=== PATIENT | male | born 1990 | race Caucasian/White ===

== ENCOUNTER 2017-10-31 02:32 | Emergency (ER) | payer OTHER ==
[~2017-10-31] VITALS: Ht 172.7 cm; Wt 75.4 kg
[2017-10-31 02:36] VITALS: Ht 172.7 cm; Wt 75.4 kg
[2017-10-31] MEDS ORDERED: TRIMETHOPRIM/SULFAMETHOX (DS) TAB PO ONE ×2 (04:00)
[2017-10-31] MEDS ORDERED: CEPHALEXIN 500 MG CAP PO ONE ×2 (04:00)
--- NOTE | 2017-10-31 04:36 | RADRPT ---
PROCEDURE: XR Foot Bilateral. CLINICAL INDICATION: Pain TECHNIQUE: AP, lateral and oblique views of the bilateral feet were obtained. The images were rev iewed on a PACS workstation. COMPARISON: None. FINDINGS: Right foot: The bones of the foot appear intact, with no evidence of acute fracture, dislocation, or subluxation . There is appearance of mild spurring deformity arising from the base of the fifth metatarsal which could be secondary to old trauma. The joint spaces are preserved. Bone mineralization is normal. No significant soft tissue swelling is seen. Left foot: The bones of the foot appear intact, with no evidence of fracture, dislocation, or subluxation. The joint spaces are preserved. Bone mineralization is normal. No significant soft tissue swelling is seen. IMPRESSION: No acute abnormality seen. There is appearance of mild spurring deformity arising from the base of t he fifth metatarsal of the right foot which could be secondary to old trauma. There is the appearanc e of mild deformity of the distal left tibia / fibula on the lateral view with which could be second fany to old trauma. RPTAT: HJES .Charlie Guzmán MD, MD Date Time Electronically viewed and signed by .Charlie Guzmán MD, MD on 10/31/2017 04:36 .S/
[2017-10-31] MEDS ORDERED: CEPH-443 PO (04:41)
[2017-10-31] MEDS ORDERED: SULF1TAB31 PO (04:41)
[2017-10-31] MEDS ORDERED: ACET325T33 PO (04:41)
--- NOTE | 2017-10-31 05:16 | ERD ---
ER Documentation Chief Complaint Chief Complaint bib 889 c/o both leg pain for a while now HPI 27-year-old homeless male was brought in by ambulance for bilateral foot pain for the past 2 weeks. Patient states that he has done a lot of walking and has the pain, he states that he has difficulty ambulating now. Patient denies any fevers. ROS All systems reviewed and are negative except as per history of present illness. Medications Home Meds Active Scripts Acetaminophen* (Tylenol*) 325 Mg Tablet, 2 TAB PO Q4 Y for PAIN AND OR ELEVATED TEMP, #30 TAB Prov:MARIANNE MARSHALL PA-C 10/31/17 Sulfamethoxazole/Trimethoprim* (Bactrim Ds* Tablet) 1 Each Tablet, 1 TAB PO BID , #14 TAB Prov:MARIANNE MARSHALL PA-C 10/31/17 Cephalexin* (Keflex*) 500 Mg Capsule, 500 MG PO QID for 7 Days, CAP Prov:MARIANNE MARSHALL PA-C 10/31/17 Allergies Allergies: Coded Allergies: No Known Drug Allergies (Verified Allergy, Unknown, 10/31/17) PMhx/Soc Medical and Surgical Hx: pt denies Medical Hx, pt denies Surgical Hx Hx Alcohol Use: No Hx Substance Use: No Hx Tobacco Use: No Smoking Status: Current some day smoker Physical Exam Vitals Vital Signs Date Time Temp Pulse Resp B/P Pulse Ox O2 Delivery O2 Flow Rate FiO2 10/31/17 02:36 98.3 94 20 122/88 98 Physical Exam Const: wdwn. poor hygiene Head: Atraumatic Eyes: Normal Conjunctiva ENT: Normal External Ears, Nose and Mouth. Neck: Full range of motion..~ No meningismus. Resp: Clear to auscultation bilaterally Cardio: Regular rate and rhythm, no murmurs Abd: Soft, non tender, non distended. Normal bowel sounds Skin: No petechiae or rashes Back: No midline or flank tenderness Ext: No cyanosis, or edema left great toe has mild erythema at cuticle with absent nail. Neur: Awake and alert Psych: no suicidal ideation. angry Results 24 hrs Current Medications Medications (Trade) Dose Ordered Sig/Ciera Route PRN Reason Start Time Stop Time Status Last Admin Dose Admin Cephalexin (Keflex) 500 mg ONCE ONCE PO 10/31/17 04:00 10/31/17 04:00 DC Trimethoprim/ Sulfamethoxazole (Bactrim (Ds)) 1 tab ONCE ONCE PO 10/31/17 04:00 10/31/17 04:00 DC Cephalexin (Keflex) 500 mg ONCE ONCE PO 10/31/17 04:00 10/31/17 04:01 DC 10/31/17 04:17 Trimethoprim/ Sulfamethoxazole (Bactrim (Ds)) 1 tab ONCE ONCE PO 10/31/17 04:00 10/31/17 04:01 DC 10/31/17 04:17 Procedures/MDM 27 year old male who is homeless brought in by ambulance for bilateral feet pain from walking too much. Patient was unpleasant to myself and staff, he was a poor historian. XRs of bilateral feet did not show acute pathology fracture or dislocation. There was evidence of old trauma. Patient had poor hygiene, left great toe had absent nail with mild erythema at cuticle therefore he was given Keflex and Bactrim, a prescription was also intended. Through out patient encounter, I saw patient ambulating without any difficulty. He was neurovascualry intact and stable to be discharged how he refused to sign paperwork, he was angry and told nurse "I want someone to scrub my feet" and was requesting prescription for Adderall and other controlled substance. He refused to sign paperwork Departure Diagnosis: Primary Impression: Foot pain, bilateral Condition: Stable Patient Instructions: Sprain Foot Referrals: NO PRIMARY,CARE PHYSICIAN MARIANNE MARSHALL PA-C Oct 31, 2017 05:16
[2017-11-01] MEDS ORDERED: IBUP400T22 PO (19:51)
[2017-11-01] MEDS ORDERED: CLOT30CR24 TOP (19:51)
[2017-11-01] MEDS ORDERED: CEPH-443 PO (19:51)
== END 2017-10-31 05:14 | disposition home or self-care (01) ==
LOC: FTE 02:32 → E/R 05:14
DX: M79.671 Pain in right foot (principal); M79.672 Pain in left foot; F17.210 Nicotine dependence, cigarettes, uncomplicated
CPT/HCPCS: 73630; Z7502; Z7610

== ENCOUNTER 2017-11-01 16:42 | Emergency (ER) | payer OTHER ==
[~2017-11-01] VITALS: Wt 77.0 kg
[~2017-11-01 16:42] MED LIST: ACET325T33 PO; CEPH-443 PO; SULF1TAB31 PO
[2017-11-01] MEDS ORDERED: CLOT30CR24 TOP (19:51)
[2017-11-01] MEDS ORDERED: IBUP400T22 PO (19:51)
[2017-11-01] MEDS ORDERED: CEPH-443 PO (19:51)
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
== END 2017-11-02 06:36 | disposition home or self-care (01) ==
LOC: E/R 16:42
DX: B35.3 Tinea pedis (principal); M79.671 Pain in right foot
CPT/HCPCS: 99283

== ENCOUNTER 2019-01-04 08:12 | Emergency (ER) | payer OTHER ==
[~2019-01-04] VITALS: Ht 175.3 cm; Wt 88.0 kg
[~2019-01-04 08:12] MED LIST changes: +CLOT30CR24 TOP; +IBUP-1561 PO; +PRED20TA PO
[2019-01-04 08:14] VITALS: Ht 175.3 cm; Wt 88.0 kg
[2019-01-04] MEDS ORDERED: OLANZAPINE 5 MG TAB PO ONE (08:30)
[2019-01-04] MEDS ORDERED: LORAZEPAM 1 MG TAB PO ONE (08:30)
--- NOTE | 2019-01-04 11:11 | PSY ---
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 past Psych Hx: + ho psych admits PMHx: denies nkda Meds: none MSE: lethargic, uncooperative, vague evasive, soft speech, +CAH denies si/hi Imp: 28 yo male acute danger to others voluntary psych admit utox for moderate agitation zyprexa 5mg po prn for severe agitation chlorpromazine 25mg imp rn Medical history Problems Medical Problems: (1) Athletes foot Status: Acute (2) Bilateral foot pain Status: Acute (3) Foot pain Status: Acute (4) Foot pain, bilateral Status: Acute (5) Syphilis Status: Acute Allergies: Coded Allergies: No Known Drug Allergies (Verified Allergy, Unknown, 10/31/17) Psychiatric Objective Eval Mental Status Examination: Laboratory Results Laboratory Tests Test 01/04/19 08:43 01/04/19 08:44 White Blood Count 8.7 10^3/ul Red Blood Count 4.50 10^6/ul Hemoglobin 14.5 g/dl Hematocrit 42.5 % Mean Corpuscular Volume 94.4 fl Mean Corpuscular Hemoglobin 32.2 pg Mean Corpuscular Hemoglobin Concent 34.1 g/dl Red Cell Distribution Width 12.1 % Platelet Count 332 10^3/UL Mean Platelet Volume 9.0 fl Immature Granulocytes % 0.300 % Neutrophils % 83.1 % Lymphocytes % 11.9 % Monocytes % 4.3 % Eosinophils % 0.2 % Basophils % 0.2 % Nucleated Red Blood Cells % 0.0 /100WBC Immature Granulocytes # 0.030 10^3/ul Neutrophils # 7.2 10^3/ul Lymphocytes # 1.0 10^3/ul Monocytes # 0.4 10^3/ul Eosinophils # 0.0 10^3/ul Basophils # 0.0 10^3/ul Nucleated Red Blood Cells # 0.0 10^3/ul Sodium Level 142 mmol/L Potassium Level 3.7 mmol/L Chloride Level 104 mmol/L Carbon Dioxide Level 28 mmol/L Anion Gap 10 Blood Urea Nitrogen 16 mg/dl Creatinine 0.71 mg/dl Est Glomerular Filtrat Rate mL/min > 60 mL/min Glucose Level 104 mg/dl Calcium Level 9.8 mg/dl Total Bilirubin 0.2 mg/dl Direct Bilirubin 0.00 mg/dl Indirect Bilirubin 0.2 mg/dl Aspartate Amino Transf (AST/SGOT) 102 IU/L Alanine Aminotransferase (ALT/SGPT) 140 IU/L Alkaline Phosphatase 58 IU/L Total Protein 7.3 g/dl Albumin 4.2 g/dl Globulin 3.10 g/dl Albumin/Globulin Ratio 1.35 Salicylates Level < 1.0 mg/dl Acetaminophen Level < 10.0 ug/ml Ethyl Alcohol Level 37.0 mg/dl Urine Color YELLOW Urine Clarity SLIGHTLY CLOUDY Urine pH 5.0 Urine Specific [place] 1.030 Urine Ketones TRACE mg/dL Urine Nitrite NEGATIVE mg/dL Urine Bilirubin NEGATIVE mg/dL Urine Urobilinogen 1+ mg/dL Urine Leukocyte Esterase NEGATIVE Vic/ul Urine Microscopic RBC 4 /HPF Urine Microscopic WBC 3 /HPF Urine Mucus MANY /HPF Urine Hemoglobin NEGATIVE mg/dL Urine Glucose NEGATIVE mg/dL Urine Total Protein NEGATIVE mg/dl Urine Opiates Screen Negative Urine Barbiturates Negative Urine Amphetamines Screen POSITIVE Urine Benzodiazepines Screen Negative Urine Cocaine Screen Negative Urine Cannabinoids Positive Assessment and Plan Recommendation/Plan Multiple antipsychotics: No Discharge Disposition: Psychiatric inpatient Legal Status: Voluntary HOJUSTICE FORREST Jan 04, 2019 11:11
--- NOTE | 2019-01-04 12:00 | ERD ---
ER Documentation Chief Complaint Chief Complaint off psych medications, hearing voices HPI 28-year-old male presents the emergency department complaining of auditory hallucinations. Patient has a history of underlying psychiatric disease and just completed a court ordered inpatient hospitalization for stabilization. He states that since discharge a few weeks ago, he has been noncompliant with his medications and intermittently using methamphetamine. He reports auditory hallucinations. He states that the hallucinations are occasionally telling him to hurt other people and to "get into a fight." He reports no suicidal thoughts. He reports no medical complaints at this time. ROS All systems reviewed and are negative except as per history of present illness. Medications Home Meds Unable to Obtain Active Prescriptions or Reported Meds Allergies Allergies: Coded Allergies: No Known Drug Allergies (Verified Allergy, Unknown, 10/31/17) PMhx/Soc Medical and Surgical Hx: pt denies Surgical Hx History of Surgery: No Anesthesia Reaction: No Hx Neurological Disorder: No Hx Respiratory Disorders: No Hx Cardiac Disorders: No Hx Psychiatric Problems: Yes (SCHITZOPHRENIA, DRUG ABUSE) Hx Miscellaneous Medical Probl: Yes (HEPATITIS C) Hx Alcohol Use: Yes Hx Substance Use: Yes (METH) Hx Tobacco Use: Yes Smoking Status: Current every day smoker FmHx Noncontributory for chief complaint Physical Exam Vitals Vital Signs Date Temp Pulse Resp B/P (MAP) Pulse Ox O2 O2 Flow FiO2 Time Delivery Rate 01/04/19 98.0 80 16 118/63 100 Room Air 10:44 (81) 01/04/19 98.0 107 19 167/89 99 08:14 (115) Physical Exam GENERAL: The patient is well developed and appropriate for usual state of health in no apparent distress HEENT: Pupils equal, round, and reactive to light. EOMI. There is no scleral icterus. NECK: C-spine is soft and supple, there is no meningismus. There is no cervical lymphadenopathy. LUNGS: Clear to auscultation bilaterally. There are no rales, wheezes or rhonchi. HEART: Regular rate and rhythm, no murmurs, clicks, rubs or gallops. ABDOMEN: Soft, non-tender, non-distended. There are bowel sounds in all four quadrants. No rebound or guarding. EXTREMITIES: There is no peripheral cyanosis or edema. No focal swelling or erythema. NEURO: The patient moves all four extremities with 5/5 strength. Cranial nerves II - XII are intact. Normal gait. Alert and oriented SKIN: There is no apparent rash or petechiae. HEME/LYMPHATIC: There is no evidence of excessive bruising or lymphedema. PSYCHIATRIC: Awake, alert, oriented. Patient is having auditory hallucinations. There is no agitation currently. Patient denies any suicidal or homicidal thoughts. Speech is fluent and intelligent. He seems to have some insight. Result Diagram: 01/04/19 0843 01/04/19 0843 Results 24 hrs Laboratory Tests Test 01/04/19 08:43 01/04/19 08:44 White Blood Count 8.7 10^3/ul Red Blood Count 4.50 10^6/ul Hemoglobin 14.5 g/dl Hematocrit 42.5 % Mean Corpuscular Volume 94.4 fl Mean Corpuscular Hemoglobin 32.2 pg Mean Corpuscular Hemoglobin Concent 34.1 g/dl Red Cell Distribution Width 12.1 % Platelet Count 332 10^3/UL Mean Platelet Volume 9.0 fl Immature Granulocytes % 0.300 % Neutrophils % 83.1 % Lymphocytes % 11.9 % Monocytes % 4.3 % Eosinophils % 0.2 % Basophils % 0.2 % Nucleated Red Blood Cells % 0.0 /100WBC Immature Granulocytes # 0.030 10^3/ul Neutrophils # 7.2 10^3/ul Lymphocytes # 1.0 10^3/ul Monocytes # 0.4 10^3/ul Eosinophils # 0.0 10^3/ul Basophils # 0.0 10^3/ul Nucleated Red Blood Cells # 0.0 10^3/ul Sodium Level 142 mmol/L Potassium Level 3.7 mmol/L Chloride Level 104 mmol/L Carbon Dioxide Level 28 mmol/L Anion Gap 10 Blood Urea Nitrogen 16 mg/dl Creatinine 0.71 mg/dl Est Glomerular Filtrat Rate mL/min > 60 mL/min Glucose Level 104 mg/dl Calcium Level 9.8 mg/dl Total Bilirubin 0.2 mg/dl Direct Bilirubin 0.00 mg/dl Indirect Bilirubin 0.2 mg/dl Aspartate Amino Transf (AST/SGOT) 102 IU/L Alanine Aminotransferase (ALT/SGPT) 140 IU/L Alkaline Phosphatase 58 IU/L Total Protein 7.3 g/dl Albumin 4.2 g/dl Globulin 3.10 g/dl Albumin/Globulin Ratio 1.35 Salicylates Level < 1.0 mg/dl Acetaminophen Level < 10.0 ug/ml Ethyl Alcohol Level 37.0 mg/dl Urine Color YELLOW Urine Clarity SLIGHTLY CLOUDY Urine pH 5.0 Urine Specific [place] 1.030 Urine Ketones TRACE mg/dL Urine Nitrite NEGATIVE mg/dL Urine Bilirubin NEGATIVE mg/dL Urine Urobilinogen 1+ mg/dL Urine Leukocyte Esterase NEGATIVE Vic/ul Urine Microscopic RBC 4 /HPF Urine Microscopic WBC 3 /HPF Urine Mucus MANY /HPF Urine Hemoglobin NEGATIVE mg/dL Urine Glucose NEGATIVE mg/dL Urine Total Protein NEGATIVE mg/dl Urine Opiates Screen Negative Urine Barbiturates Negative Urine Amphetamines Screen POSITIVE Urine Benzodiazepines Screen Negative Urine Cocaine Screen Negative Urine Cannabinoids Positive Current Medications Medications Dose Sig/Ciera Start Time Status Last (Trade) Ordered Route PRN Stop Time Admin Dose Reason Admin Olanzapine 10 mg ONCE ONCE 01/04/19 DC 01/04/19 (Zyprexa) PO 08:30 08:50 01/04/19 08:31 Lorazepam 1 mg ONCE ONCE 01/04/19 DC 01/04/19 (Ativan) PO 08:30 08:51 01/04/19 08:31 Procedures/MDM Patient was taken to a room, seen and evaluated. Comfort measures were initiated. Diagnostic tests were ordered and reviewed. CONSULTATION: Tele-psychiatry was consulted and recommendations were appreciated. REEVALUATION: 1200: Patient remains well-appearing and without agitation. MEDICAL DECISION MAKIN-year-old male with a history of underlying p sychiatric disease and substance abuse disorder presents the emergency department with psychotic symptoms. At this time, he has improved after the Zyprexa. He does not appear to be in imminent danger to himself or others, but has been recommended for voluntary psychiatric hospitalization for which we are pending placement. He will remain under observation in the emergency department pending placement to a local voluntary psychiatric facility. Departure Diagnosis: Primary Impression: Hallucinations Additional Impression: Methamphetamine abuse Condition: Stable HUNG RUBIN Jan 04, 2019 12:00
[2019-01-04 20:13] VITALS: BP 127/72; PULSE 91; RESP 16
== END 2019-01-04 20:35 ==
LOC: E/R 08:12
DX: F15.10 Other stimulant abuse, uncomplicated (principal); R40.2142 Coma scale, eyes open, spontaneous, at arrival to emergency department; R40.2362 Coma scale, best motor response, obeys commands, at arrival to emergency department; R40.2252 Coma scale, best verbal response, oriented, at arrival to emergency department; F17.210 Nicotine dependence, cigarettes, uncomplicated; R44.3 Hallucinations, unspecified
CPT/HCPCS: 36415; 80053; 80307; 81001; 81003; 85025; Z7502; Z7610

== ENCOUNTER 2019-01-13 18:28 | Emergency (ER) | payer OTHER ==
[~2019-01-13] VITALS: Ht 167.6 cm; Wt 85.0 kg
[2019-01-13 18:53] VITALS: Ht 167.6 cm; Wt 85.0 kg
--- NOTE | 2019-01-13 20:07 | ERD ---
ER Documentation Chief Complaint Chief Complaint BODY ACHES WITH CHILLS X 5 DAYS HPI 28-year-old male, presents to the emergency department, complaining of 5 days with worsening of upper respiratory symptoms including cough, chest congestion subjective fever and general malaise. The patient has been taking over-the- counter medications without improvement of the symptoms. He denies chest pain, no shortness of breath, no dizziness. ROS All systems reviewed and are negative except as per history of present illness. Medications Home Meds Active Scripts Fexofenadine Hcl* (Fexofenadine Hcl*) 180 Mg Tablet, 180 MG PO DAILY, #30 TAB Prov:BIB HERNANDES MD 01/13/19 Albuterol Sulfate* (Albuterol Sulfate* Liq) 2 Mg/5 Ml Syrup, 2 MG PO TID, #60 ML Prov:BIB HERNANDES MD 01/13/19 Amoxicillin* (Amoxicillin*) 500 Mg Cap, 500 MG PO TID for 7 Days, CAP Prov:BIB HERNANDES MD 01/13/19 Allergies Allergies: Coded Allergies: No Known Drug Allergies (Verified Allergy, Unknown, 10/31/17) PMhx/Soc History of Surgery: No Anesthesia Reaction: No Hx Neurological Disorder: No Hx Respiratory Disorders: No Hx Cardiac Disorders: No Hx Psychiatric Problems: Yes (SCHITZOPHRENIA, DRUG ABUSE) Hx Miscellaneous Medical Probl: Yes (HEPATITIS C) Hx Alcohol Use: Yes Hx Substance Use: Yes (METH) Hx Tobacco Use: Yes Smoking Status: Current every day smoker FmHx Family History: No diabetes, No coronary disease Physical Exam Vitals Vital Signs Date Temp Pulse Resp B/P (MAP) Pulse Ox O2 O2 Flow FiO2 Time Delivery Rate 01/13/19 97.1 65 18 118/73 98 18:53 (88) Physical Exam Const: No acute distress Head: Atraumatic Eyes: Normal Conjunctiva ENT: Normal External Ears, Nose and Mouth. Neck: Full range of motion. No meningismus. Resp: Rhonchi to auscultation bilaterally Cardio: Regular rate and rhythm, no murmurs Abd: Soft, non tender, non distended. Normal bowel sounds Skin: No petechiae or rashes Back: No midline or flank tenderness Ext: No cyanosis, or edema Neur: Awake and alert Psych: Normal Mood and Affect Procedures/MDM At the time of discharge, patient with nontoxic appearance, vital signs stable, no respiratory distress. Differential diagnosis include but not limited to: Respiratory infection bacterial/viral/fungal. Influenza, whooping cough, pneumonia, pneumonitis, allergies, GERD. Less likely foreign body aspiration, cardiac related. Physical examination and clinical presentation consistent most likely with viral infection with early superimposed bacterial infection. During the ED course the patient remained stable, no new complaints. Treatment options and clinical impression discussed with the patient who agrees with management. The patient is stable to be treated outpatient and will be discharged home. Some side effects of prescribed medications (headache, rash, nausea, vomiting, diarrhea, interactions with other medications) were reviewed. The patient needs to follow up with the primary care provider in the next 48h. If symptoms persist, worsen or new symptoms develop, then patient should return to the ED immediately. Disclaimer: Inadvertent spelling and grammatical errors are likely due to EHR/dictation software use and do not reflect on the overall quality of patient care. Also, please note that the electronic time recorded on this note does not necessarily reflect the actual time of the patient encounter. Departure Diagnosis: Primary Impression: Cough Condition: Stable Additional Instructions: Thank you very much for allowing us to participate in your care. Your health and safety is our top priority at [facility]. Call your primary care doctor TOMORROW for an appointment during the next 2-4 days and bring all the information and medications prescribed. Have prescriptions filled and follow precisely the directions on the label. If the symptoms get worse and your provider is unavailable, return to the [facility] Department immediately. BIB HERNANDES MD Jan 13, 2019 20:07
[2019-01-13] MEDS ORDERED: ALBU2SYR3 PO (20:08)
[2019-01-13] MEDS ORDERED: FEXO180T13 PO (20:08)
[2019-01-13] MEDS ORDERED: AMOX500C2 PO (20:08)
[2019-01-13 20:44] VITALS: BP 126/64; PULSE 68; RESP 19
== END 2019-01-13 20:51 | disposition home or self-care (01) ==
LOC: FTE 18:28
DX: R05 Cough (principal); F17.210 Nicotine dependence, cigarettes, uncomplicated
CPT/HCPCS: 99283

== ENCOUNTER 2019-01-30 05:37 | Emergency (ER) | payer OTHER ==
[~2019-01-30] VITALS: Ht 170.2 cm; Wt 77.1 kg
[~2019-01-30 05:37] MED LIST changes: -ACET325T33 PO; +ALBU2SYR3 PO; +AMOX500C2 PO; -CEPH-443 PO; -CLOT30CR24 TOP; +FEXO180T13 PO; -IBUP-1561 PO; -PRED20TA PO; -SULF1TAB31 PO
[2019-01-30 05:40] VITALS: Ht 170.2 cm; Wt 77.1 kg
--- NOTE | 2019-01-30 06:58 | ERD ---
ER Documentation Chief Complaint Chief Complaint HAS NOT TAKEN PSYCH MEDS X1 MONTH, HI, STATES UNABLE TO DISCERN REALITY HPI This is a 28-year-old male who is here for homicidal ideation. He says he has not taken his psych meds in 1 month which were Wellbutrin and Abilify. He said that he feels like he is unable to discern reality. He is not suicidal. Denies alcohol or drug abuse. He does not have a plan for his homicidal thoughts. He has had psych admissions in the past ROS All systems reviewed and are negative except as per history of present illness. Medications Home Meds Active Scripts Fexofenadine Hcl* (Fexofenadine Hcl*) 180 Mg Tablet, 180 MG PO DAILY, #30 TAB Prov:BIB HERNANDES MD 01/13/19 Albuterol Sulfate* (Albuterol Sulfate* Liq) 2 Mg/5 Ml Syrup, 2 MG PO TID, #60 ML Prov:BIB HERNANDES MD 01/13/19 Amoxicillin* (Amoxicillin*) 500 Mg Cap, 500 MG PO TID for 7 Days, CAP Prov:BIB HERNANDES MD 01/13/19 Allergies Allergies: Coded Allergies: No Known Drug Allergies (Verified Allergy, Unknown, 10/31/17) PMhx/Soc History of Surgery: No Anesthesia Reaction: No Hx Neurological Disorder: No Hx Respiratory Disorders: No Hx Cardiac Disorders: No Hx Psychiatric Problems: Yes (SCHITZOPHRENIA, DRUG ABUSE) Hx Miscellaneous Medical Probl: Yes (HEPATITIS C) Hx Alcohol Use: Yes Hx Substance Use: Yes (METH) Hx Tobacco Use: Yes Smoking Status: Former smoker FmHx Family History: No coronary disease Physical Exam Vitals Vital Signs Date Temp Pulse Resp B/P (MAP) Pulse Ox O2 O2 Flow FiO2 Time Delivery Rate 01/30/19 97.8 100 19 137/66 96 05:40 (89) Physical Exam Const: No acute distress Head: Atraumatic Eyes: Normal Conjunctiva ENT: Normal External Ears, Nose and Mouth. Neck: Full range of motion. No meningismus. Resp: Clear to auscultation bilaterally Cardio: Regular rate and rhythm, no murmurs Abd: Soft, non tender, non distended. Normal bowel sounds Skin: No petechiae or rashes Back: No midline or flank tenderness Ext: No cyanosis, or edema Neur: Awake and alert Psych: Homicidal thoughts Result Diagram: 01/30/19 0635 01/30/19 0635 Results 24 hrs Laboratory Tests Test 01/30/19 06:35 01/30/19 08:55 White Blood Count 4.0 10^3/ul Red Blood Count 4.59 10^6/ul Hemoglobin 14.3 g/dl Hematocrit 43.0 % Mean Corpuscular Volume 93.7 fl Mean Corpuscular Hemoglobin 31.2 pg Mean Corpuscular Hemoglobin Concent 33.3 g/dl Red Cell Distribution Width 11.8 % Platelet Count 251 10^3/UL Mean Platelet Volume 9.1 fl Immature Granulocytes % 0.300 % Neutrophils % 46.2 % Lymphocytes % 39.4 % Monocytes % 9.3 % Eosinophils % 4.5 % Basophils % 0.3 % Nucleated Red Blood Cells % 0.0 /100WBC Immature Granulocytes # 0.010 10^3/ul Neutrophils # 1.8 10^3/ul Lymphocytes # 1.6 10^3/ul Monocytes # 0.4 10^3/ul Eosinophils # 0.2 10^3/ul Basophils # 0.0 10^3/ul Nucleated Red Blood Cells # 0.0 10^3/ul Sodium Level 141 mmol/L Potassium Level 3.7 mmol/L Chloride Level 105 mmol/L Carbon Dioxide Level 31 mmol/L Anion Gap 5 Blood Urea Nitrogen 12 mg/dl Creatinine 0.65 mg/dl Est Glomerular Filtrat Rate mL/min > 60 mL/min Glucose Level 86 mg/dl Calcium Level 9.1 mg/dl Total Bilirubin 0.4 mg/dl Direct Bilirubin 0.00 mg/dl Indirect Bilirubin 0.4 mg/dl Aspartate Amino Transf (AST/SGOT) 93 IU/L Alanine Aminotransferase (ALT/SGPT) 157 IU/L Alkaline Phosphatase 50 IU/L Total Protein 6.5 g/dl Albumin 3.7 g/dl Globulin 2.80 g/dl Albumin/Globulin Ratio 1.32 Salicylates Level < 1.0 mg/dl Acetaminophen Level < 10.0 ug/ml Ethyl Alcohol Level < 10.0 mg/dl Urine Opiates Screen Negative Urine Barbiturates Negative Urine Amphetamines Screen Positive Urine Benzodiazepines Screen Negative Urine Cocaine Screen Negative Urine Cannabinoids Negative Procedures/MDM Patient be evaluated by telemetry psychiatrist and transferred to inpatient facility for homicidal ideations Departure Diagnosis: Primary Impression: Homicidal ideation Condition: Stable KWAME CAMEJO DO Jan 30, 2019 06:58
--- NOTE | 2019-01-30 13:22 | PSY ---
Date/Time of Note Date/Time of Note DATE: 01/30/19 TIME: 13:19 Psychiatric Subjective Eval Subjective Evaluation Patient location: emergency Chief Complaint: HAS NOT TAKEN PSYCH MEDS X1 MONTH, HI, STATES UNABLE TO DISCERN REALITY History of present illness 28 yo homeless male, on probation, released from jail a month ago, presents to ED c/o confusion and HI toward no one specific; denies SI, denies AH or VH; paranoid; says he needs "detox" from meth. Not able to feel safe. OF meds. Past psychiatric history prior inpt Hospitalization: yes Family History denies Medical history Problems Medical Problems: (1) Athletes foot Status: Acute (2) Bilateral foot pain Status: Acute (3) Cough Status: Acute (4) Foot pain Status: Acute (5) Foot pain, bilateral Status: Acute (6) Hallucinations Status: Acute (7) Homicidal ideation Status: Acute (8) Methamphetamine abuse Status: Acute (9) Syphilis Status: Acute Allergies: Coded Allergies: No Known Drug Allergies (Verified Allergy, Unknown, 10/31/17) Substance Abuse Substance abuse history: Yes Prior substance abuse treatmen: Yes Social History Marital status: single DPA/Conservatorship: No Occupation/Long-Term: on probation Psychiatric Objective Eval Mental Status Examination: Appearance: Disheveled Eye Contact: Poor Psychomotor Activity: Normal Behavior: Guarded Speech: Monotone AFFECT: Constricted Mood: Irritable Though Process: Linear Thought Content: Delusions Suicidal: No Homicidal: Yes Orientation: x4 Cognition: Alert Insight: Impared Judgement: Impared Laboratory Results Laboratory Tests Test 01/30/19 06:35 01/30/19 08:55 White Blood Count 4.0 10^3/ul Red Blood Count 4.59 10^6/ul Hemoglobin 14.3 g/dl Hematocrit 43.0 % Mean Corpuscular Volume 93.7 fl Mean Corpuscular Hemoglobin 31.2 pg Mean Corpuscular Hemoglobin Concent 33.3 g/dl Red Cell Distribution Width 11.8 % Platelet Count 251 10^3/UL Mean Platelet Volume 9.1 fl Immature Granulocytes % 0.300 % Neutrophils % 46.2 % Lymphocytes % 39.4 % Monocytes % 9.3 % Eosinophils % 4.5 % Basophils % 0.3 % Nucleated Red Blood Cells % 0.0 /100WBC Immature Granulocytes # 0.010 10^3/ul Neutrophils # 1.8 10^3/ul Lymphocytes # 1.6 10^3/ul Monocytes # 0.4 10^3/ul Eosinophils # 0.2 10^3/ul Basophils # 0.0 10^3/ul Nucleated Red Blood Cells # 0.0 10^3/ul Sodium Level 141 mmol/L Potassium Level 3.7 mmol/L Chloride Level 105 mmol/L Carbon Dioxide Level 31 mmol/L Anion Gap 5 Blood Urea Nitrogen 12 mg/dl Creatinine 0.65 mg/dl Est Glomerular Filtrat Rate mL/min > 60 mL/min Glucose Level 86 mg/dl Calcium Level 9.1 mg/dl Total Bilirubin 0.4 mg/dl Direct Bilirubin 0.00 mg/dl Indirect Bilirubin 0.4 mg/dl Aspartate Amino Transf (AST/SGOT) 93 IU/L Alanine Aminotransferase (ALT/SGPT) 157 IU/L Alkaline Phosphatase 50 IU/L Total Protein 6.5 g/dl Albumin 3.7 g/dl Globulin 2.80 g/dl Albumin/Globulin Ratio 1.32 Salicylates Level < 1.0 mg/dl Acetaminophen Level < 10.0 ug/ml Ethyl Alcohol Level < 10.0 mg/dl Urine Opiates Screen Negative Urine Barbiturates Negative Urine Amphetamines Screen Positive Urine Benzodiazepines Screen Negative Urine Cocaine Screen Negative Urine Cannabinoids Negative Assessment and Plan Assessment/Diagnosis Diagnosis AMPHETAMINE USE DISORDER WITH PSYCHOSIS. Recommendation/Plan Medication Management ZYPREXA 10 MG POQHS AND 5 MG POQAM Multiple antipsychotics: Yes Discharge Disposition: Psychiatric inpatient Legal Status: Place involuntary hold VERONICA CASILLAS MD Jan 30, 2019 13:22
[2019-01-31 13:50] VITALS: BP 130/71; PULSE 91; RESP 18
== END 2019-01-31 14:02 | disposition short-term general hospital (02) ==
LOC: E/R 05:37
DX: R45.850 Homicidal ideations (principal); R40.2142 Coma scale, eyes open, spontaneous, at arrival to emergency department; R40.2252 Coma scale, best verbal response, oriented, at arrival to emergency department; R40.2362 Coma scale, best motor response, obeys commands, at arrival to emergency department
CPT/HCPCS: 36415; 80053; 80307; 85025; Z7502; 99285

== ENCOUNTER 2019-05-30 15:36 | Emergency (ER) | payer OTHER ==
[~2019-05-30] VITALS: Ht 177.8 cm; Wt 76.0 kg
[2019-05-30 15:54] VITALS: Ht 177.8 cm; Wt 76.0 kg
[2019-05-30] MEDS ORDERED: LORAZEPAM 1 MG TAB PO ONE (16:00)
--- NOTE | 2019-05-30 18:35 | ERD ---
ER Documentation Chief Complaint Chief Complaint bib ra anderson cerrato of generalized weakness , meth use today, feels tired HPI This is a 29-year-old male that presented to the emergency department with recent meth use from EMS. The patient stated he felt dehydrated as he had been sitting in the sun and felt weak. He wanted a place to sleep. He stated he has no chest pain no shortness of breath no nausea no vomiting. He denies any hemoptysis no hematemesis no melanotic stools. EMS stated there was no trauma. The patient stated his last crystal meth use was roughly an hour prior to arrival ROS All systems reviewed and are negative except as per history of present illness. Medications Home Meds No Active Prescriptions or Reported Meds Allergies Allergies: Coded Allergies: No Known Drug Allergies (Unverified Allergy, Unknown, 05/30/19) PMhx/Soc History of Surgery: No Anesthesia Reaction: No Hx Neurological Disorder: No Hx Respiratory Disorders: No Hx Cardiac Disorders: No Hx Psychiatric Problems: Yes (SCHITZOPHRENIA, DRUG ABUSE) Hx Miscellaneous Medical Probl: Yes (HEPATITIS C) Hx Alcohol Use: Yes Hx Substance Use: Yes (METH) Hx Tobacco Use: Yes Smoking Status: Current every day smoker Physical Exam Vitals Vital Signs Date Temp Pulse Resp B/P (MAP) Pulse Ox O2 O2 Flow FiO2 Time Delivery Rate 05/30/19 63 19 133/79 96 Room Air 19:30 (97) 05/30/19 62 18 125/62 98 Room Air 17:30 (83) 05/30/19 98.1 78 18 115/76 98 15:54 (89) Physical Exam Constitutional:Well-developed. Disheveled HEENT:Normocephalic. Atraumatic.Pupils were 5 mm equal round reactive to light. Moist mucous membranes.No tonsillar exudates. Neck: No nuchal rigidity. No lymphadenopathy. No posterior cervical spine tenderness or step-offs. Respiratory: Not using accessory muscles of respiration.Lungs were clear to auscultation bilaterally. No rhonchi. No rales. No wheezing. Cardiovascular: Regular rate regular rhythm.No murmurs. No rubs were appreciated.S1, S2 normal. Distal pulses are palpable 2+ bilaterally. GI: Abdomen was soft. Nontender. Non Distended. No pulsatile abdominal masses or bruits. No rebound. No guarding. Bowel sounds were present and normal. Muscle skeletal: Full range of motion of both the upper and lower extremities bilaterally.Normal muscle tone.No assymetrical calf tenderness or swelling. Skin: No petechia, no purpura. No lesions on the palms or the soles of the feet. No maculopapular rash. NEURO: Patient was alert, awake, orientated x3.No facial droop. Gait observed and normal with no ataxia.Speech had regular rate and rhythm. No focal neurological deficits. PSYCH: Patient had no suicidal homicidal thoughts ideations. Patient denied auditory tactile visual hallucinations Result Diagram: 05/30/19 1601 05/30/19 1601 Results 24 hrs Laboratory Tests Test 05/30/19 16:01 05/30/19 18:45 05/30/19 18:50 White Blood Count 5.5 10^3/ul Red Blood Count 3.74 10^6/ul Hemoglobin 11.8 g/dl Hematocrit 35.6 % Mean Corpuscular Volume 95.2 fl Mean Corpuscular Hemoglobin 31.6 pg Mean Corpuscular 33.1 g/dl Hemoglobin Concent Red Cell Distribution Width 13.2 % Platelet Count 265 10^3/UL Mean Platelet Volume 9.0 fl Immature Granulocytes % 0.200 % Neutrophils % 59.2 % Lymphocytes % 29.0 % Monocytes % 7.7 % Eosinophils % 3.7 % Basophils % 0.2 % Nucleated Red Blood Cells % 0.0 /100WBC Immature Granulocytes # 0.010 10^3/ul Neutrophils # 3.2 10^3/ul Lymphocytes # 1.6 10^3/ul Monocytes # 0.4 10^3/ul Eosinophils # 0.2 10^3/ul Basophils # 0.0 10^3/ul Nucleated Red Blood Cells # 0.0 10^3/ul Sodium Level 139 mmol/L Potassium Level 4.1 mmol/L Chloride Level 105 mmol/L Carbon Dioxide Level 28 mmol/L Anion Gap 6 Blood Urea Nitrogen 17 mg/dl Creatinine 0.66 mg/dl Est Glomerular Filtrat > 60 mL/min Rate mL/min Glucose Level 101 mg/dl Calcium Level 8.8 mg/dl Total Bilirubin 0.3 mg/dl Direct Bilirubin 0.00 mg/dl Indirect Bilirubin 0.3 mg/dl Aspartate Amino 48 IU/L Transf (AST/SGOT) Alanine 72 IU/L Aminotransferase (ALT/SGPT) Alkaline Phosphatase 58 IU/L Total Protein 6.5 g/dl Albumin 3.4 g/dl Globulin 3.10 g/dl Albumin/Globulin Ratio 1.09 Salicylates Level < 1.0 mg/dl Acetaminophen Level < 10.0 ug/ml Ethyl Alcohol Level < 10.0 mg/dl Urine Opiates Screen Negative Urine Barbiturates Negative Urine Amphetamines Screen POSITIVE Urine Benzodiazepines Screen Negative Urine Cocaine Screen Negative Urine Cannabinoids Positive Urine Color YELLOW Urine Clarity CLEAR Urine pH 6.0 Urine Specific [place] 1.023 Urine Ketones NEGATIVE mg/dL Urine Nitrite NEGATIVE mg/dL Urine Bilirubin NEGATIVE mg/dL Urine Urobilinogen 1+ mg/dL Urine Leukocyte Esterase NEGATIVE Vic/ul Urine Hemoglobin NEGATIVE mg/dL Urine Glucose NEGATIVE mg/dL Urine Total Protein NEGATIVE mg/dl Current Medications Medications Dose Sig/Ciera Start Time Status Last (Trade) Ordered Route PRN Stop Time Admin Dose Reason Admin Lorazepam 1 mg ONCE ONCE 05/30/19 DC 05/30/19 (Ativan) PO 16:00 15:59 05/30/19 16:01 Procedures/MDM This a 29-year-old male that presented to the emergency department with a history of crystal meth use. The patient did not show signs of severe clinical dehydration. The patient had no electrolyte abnormalities. The patient no leukocytosis. The patient was able to tolerate oral intake and was given oral hydration in the emergency department. The patient did not appear to be a threat to himself or others. The patient was discharged and was refusing social work consult as he is homeless. The patient was discharged home in fair condition. They were instructed to return to the emergency department at any time if there was any worsening of their condition. The patient stated they would follow up with their PCP in the next 24-48 hours to initiate a suitable medication regimen under the care of their PCP as well as to allow their PCP to monitor any drug reactions. The patient was discharged home with prescriptions after they gave informed consent to the new medication. They were also fully informed by myself on the adverse effects and adverse drug interactions in order to provide adequate safeguards to prevent possible adverse reactions to medications. Nursing staff approached me and indicated that she is to the patient was to be discharged he now stated he was suicidal. However he initially did not complain of any suicidal homicidal thoughts ideations. He stated he did not have a plan. Therefore he was telemetry psych and he did not meet criteria according to the psychiatrist as he no longer stated he was suicidal. He does stated he wanted to sleep. Again I did not feel the patient was a threat to himself or others. Departure Diagnosis: Primary Impression: Amphetamine abuse Additional Impression: Dehydration Condition: Fair Patient Instructions: DANE Matias MD May 30, 2019 18:33
--- NOTE | 2019-05-30 20:43 | PSY ---
Date/Time of Note Date/Time of Note DATE: 05/30/19 TIME: 21:37 Psychiatric Subjective Eval Consent Pt consented to telemedicine: Yes Subjective Evaluation Patient location: emergency Chief Complaint: bib ra fror eval of generalized weakness , meth use today, feels tired Reason for consult: depression History of present illness the patient presented today stating that he felt dehydrated and wanted iv fluids. 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 labs were done and they were within normal limits. when the patient was told that he was going to be discharged, he said that he was feeling suicidal, he did not have a plan, and demanded to see a psychiatrist. when i corrected with the patient, he was asleep. he woke up and stated that he does not feel that they rehydrated him well. he denied that he had any suicidal intent or plan. there was no evidence of psychosis. note that the patient was positive for methamphetamines. the patient is homeless and was in the heat. shortly within our conversation, the patient fell asleep with the telephone in his hand and i was unable to further wake him up. it appears that the patient is coming off of methamphetamines. Past psychiatric history none Hospitalization: no Family History negative for psychiatric illness Medical history Problems Medical Problems: (1) Amphetamine abuse Status: Acute (2) Athletes foot Status: Acute (3) Bilateral foot pain Status: Acute (4) Cough Status: Acute (5) Dehydration Status: Acute (6) Foot pain Status: Acute (7) Foot pain, bilateral Status: Acute (8) Hallucinations Status: Acute (9) Homicidal ideation Status: Acute (10) Methamphetamine abuse Status: Acute (11) Syphilis Status: Acute Allergies: Coded Allergies: No Known Drug Allergies (Unverified Allergy, Unknown, 05/30/19) Substance Abuse Substance use: other Substance abuse history: Yes Prior substance abuse treatmen: No Social History Marital status: single Level of education: tend grade DPA/Conservatorship: No Occupation/Group Home: unemployed Psychiatric Objective Eval Review of Systems: Review of Systems: Not Applicable Physical Examination: Physical Examination: Not Applicable Sleep: Adequate Appetite: Adequate Energy: Adequate Interest: Adequate Mental Status Examination: Appearance: Poor Hygiene Eye Contact: Poor Psychomotor Activity: Slow Behavior: Cooperative Speech: Clear AFFECT: Appropriate Mood: Appropriate/Full Though Process: Linear Thought Content: Normal Suicidal: No Homicidal: No On 72 hour hold: No Orientation: x4 Cognition: Drowsy Insight: Intact Judgement: Intact Attention Span: Distractible Laboratory Results Laboratory Tests Test 05/30/19 16:01 05/30/19 18:45 05/30/19 18:50 White Blood Count 5.5 10^3/ul Red Blood Count 3.74 10^6/ul Hemoglobin 11.8 g/dl Hematocrit 35.6 % Mean Corpuscular Volume 95.2 fl Mean Corpuscular Hemoglobin 31.6 pg Mean Corpuscular 33.1 g/dl Hemoglobin Concent Red Cell Distribution Width 13.2 % Platelet Count 265 10^3/UL Mean Platelet Volume 9.0 fl Immature Granulocytes % 0.200 % Neutrophils % 59.2 % Lymphocytes % 29.0 % Monocytes % 7.7 % Eosinophils % 3.7 % Basophils % 0.2 % Nucleated Red Blood Cells % 0.0 /100WBC Immature Granulocytes # 0.010 10^3/ul Neutrophils # 3.2 10^3/ul Lymphocytes # 1.6 10^3/ul Monocytes # 0.4 10^3/ul Eosinophils # 0.2 10^3/ul Basophils # 0.0 10^3/ul Nucleated Red Blood Cells # 0.0 10^3/ul Sodium Level 139 mmol/L Potassium Level 4.1 mmol/L Chloride Level 105 mmol/L Carbon Dioxide Level 28 mmol/L Anion Gap 6 Blood Urea Nitrogen 17 mg/dl Creatinine 0.66 mg/dl Est Glomerular Filtrat > 60 mL/min Rate mL/min Glucose Level 101 mg/dl Calcium Level 8.8 mg/dl Total Bilirubin 0.3 mg/dl Direct Bilirubin 0.00 mg/dl Indirect Bilirubin 0.3 mg/dl Aspartate Amino 48 IU/L Transf (AST/SGOT) Alanine 72 IU/L Aminotransferase (ALT/SGPT) Alkaline Phosphatase 58 IU/L Total Protein 6.5 g/dl Albumin 3.4 g/dl Globulin 3.10 g/dl Albumin/Globulin Ratio 1.09 Salicylates Level < 1.0 mg/dl Acetaminophen Level < 10.0 ug/ml Ethyl Alcohol Level < 10.0 mg/dl Urine Opiates Screen Negative Urine Barbiturates Negative Urine Amphetamines Screen POSITIVE Urine Benzodiazepines Screen Negative Urine Cocaine Screen Negative Urine Cannabinoids Positive Urine Color YELLOW Urine Clarity CLEAR Urine pH 6.0 Urine Specific [place] 1.023 Urine Ketones NEGATIVE mg/dL Urine Nitrite NEGATIVE mg/dL Urine Bilirubin NEGATIVE mg/dL Urine Urobilinogen 1+ mg/dL Urine Leukocyte Esterase NEGATIVE Vic/ul Urine Hemoglobin NEGATIVE mg/dL Urine Glucose NEGATIVE mg/dL Urine Total Protein NEGATIVE mg/dl Assessment and Plan Assessment/Diagnosis Diagnosis stimulant use disorder Recommendation/Plan Medication Management no medications recommended at this time Multiple antipsychotics: No Discharge Disposition: Community (home) Legal Status: Voluntary DALTON KEENAN May 30, 2019 20:43
[2019-05-30 21:10] VITALS: BP 130/69; PULSE 86; RESP 18
== END 2019-05-30 21:11 | disposition home or self-care (01) ==
LOC: E/R 15:36
DX: F15.10 Other stimulant abuse, uncomplicated (principal); F17.210 Nicotine dependence, cigarettes, uncomplicated; E86.0 Dehydration
CPT/HCPCS: 80053; 80307; 81003; 85025; 87086; Z7502; Z7610

== ENCOUNTER 2019-07-09 19:13 | Emergency (ER) | payer OTHER ==
[~2019-07-09] VITALS: Wt 70.5 kg
[2019-07-09 20:11] VITALS: BP 142/85; PULSE 92; RESP 22
== END 2019-07-09 20:14 | disposition home or self-care (01) ==
LOC: E/R 19:13
DX: F15.129 Other stimulant abuse with intoxication, unspecified (principal); F20.1 Disorganized schizophrenia; F17.210 Nicotine dependence, cigarettes, uncomplicated
CPT/HCPCS: 99282